=== PATIENT | female | born 1955 | race Hispanic/Latino ===

== ENCOUNTER 2021-09-10 01:24 | Emergency (ER) | payer SELFPAY ==
[2021-09-10] MEDS ORDERED: SODIUM CHLORIDE 0.9% 1000 ML 1,000 ML IV ONE (06:27)
[2021-09-10 06:58] VITALS: BP 133/69
[2021-09-10 07:32] LABS: Amphetamine Screen,Urine Negative; Cannabinoid Screen,Urine Negative; Cocaine Screen,Urine Negative; Methadone Screen,Urine Negative; Opiate Screen,Urine Negative
[2021-09-10 07:33] LABS: Basophils % (Auto) 0.3 % (0.0-1.8); Eosinophils # (Auto) 0.2 K/mm3 (0.0-0.4); Eosinophils % (Auto) 2.8 % (0.0-4.3); Hematocrit 36.6 % (30.3-42.9); Hemoglobin 12.2 gm/dl (10.1-14.3); Lymphocytes # (Auto) 1.5 K/mm3 (1.2-5.4); Lymphocytes % (Auto) 19.9 % (13.4-35.0); Mean Corpuscular HGB Conc 33 % (30-34); Mean Corpuscular Volume 88 fl (79-97); Monocytes # (Auto) 0.4 K/mm3 (0.0-0.8); Monocytes % (Auto) 5.4 % (0.0-7.3); Platelet Count 259 K/mm3 (140-440); Red Blood Count 4.17 M/mm3 (3.65-5.03)
[2021-09-10 07:57] LABS: Alanine Aminotransferase 24 units/L (7-56); Albumin 3.6 g/dL (3.9-5); Blood Urea Nitrogen 14 mg/dL (7-17); Calcium 9.1 mg/dL (8.4-10.2); Hemolysis Index 15
[2021-09-10 08:00] LABS: Bacteria,Urine 1+ /HPF (Negative); Mucus,Urine FEW /HPF
[2021-09-10 08:09] LABS: BUN/Creatinine Ratio 35
[2021-09-10 08:14] LABS: Benzodiazepines Screen,Urine Positive
--- NOTE | 2021-09-10 08:21 | Emergency Department Report ---
ED General Adult HPI - General Chief complaint: Pain General Stated complaint: MED REFILL PUI?: No Time Seen by Provider: 09/10/21 06:26 Source: patient Mode of arrival: Stretcher Limitations: No Limitations - History of Present Illness Initial comments: At airport on her way to [place]. Ran out of Fentanyl Patch. Took Xanax [employer] and sleeps at tere frequent intervals. Responds to verbal and tactile stimuli. -: hour(s) Severity scale (0 -10): 6 Worsens with: none Associated Symptoms: denies: denies other symptoms, confusion, chest pain, cough - Related Data Allergies Allergy/AdvReac Type Severity Reaction Status Date / Time Sulfa (Sulfonamide Allergy Itching Verified 09/10/21 02:51 Antibiotics) ED Review of Systems ROS: Stated complaint: MED REFILL Other details as noted in HPI Constitutional: denies: chills, fever Eyes: denies: eye pain, eye discharge, vision change ENT: denies: ear pain, throat pain Respiratory: denies: cough, shortness of breath, wheezing Cardiovascular: denies: chest pain, palpitations Endocrine: no symptoms reported Gastrointestinal: denies: abdominal pain, nausea, diarrhea Genitourinary: denies: urgency, dysuria, discharge Musculoskeletal: denies: back pain, joint swelling, arthralgia Skin: denies: rash, lesions Neurological: denies: headache, weakness, paresthesias Psychiatric: denies: anxiety, depression Hematological/Lymphatic: denies: easy bleeding, easy bruising ED Past Medical Hx - Past Medical History Previous Medical History?: Yes Hx of Cancer: Yes (Stage 4 breast Cancer) Hx Psychiatric Treatment: Yes (Anxiety, Panic attack) - Surgical History Past Surgical History?: No - Social History Smoking Status: Never Smoker Substance Use Type: Other ED Physical Exam - General Limitations: No Limitations General appearance: alert, other (drowsy sleepy ) - Head Head exam: Present: atraumatic, normocephalic - Eye Eye exam: Present: normal appearance - ENT ENT exam: Present: mucous membranes moist - Neck Neck exam: Present: normal inspection - Respiratory Respiratory exam: Present: normal lung sounds bilaterally. Absent: respiratory distress - Cardiovascular Cardiovascular Exam: Present: regular rate, normal rhythm. Absent: systolic murmur, diastolic murmur, rubs, gallop - GI/Abdominal GI/Abdominal exam: Present: soft, normal bowel sounds - Extremities Exam Extremities exam: Present: normal inspection - Back Exam Back exam: Present: normal inspection - Neurological Exam Neurological exam: Present: alert, oriented X3 - Psychiatric Psychiatric exam: Present: normal affect, normal mood - Skin Skin exam: Present: warm, dry, intact, normal color. Absent: rash ED Course Vital Signs 09/10/21 09/10/21 09/10/21 01:24 02:54 04:03 Temperature 98 F Pulse Rate 77 72 74 Respiratory 20 12 17 Rate Blood Pressure 118/80 Blood Pressure 90/35 105/44 [Left] O2 Sat by Pulse 98 100 97 Oximetry 09/10/21 06:57 Temperature Pulse Rate 76 Respiratory 16 Rate Blood Pressure Blood Pressure 133/69 [Left] O2 Sat by Pulse 99 Oximetry ED Medical Decision Making - Lab Data Result diagrams: 09/10/21 06:49 09/10/21 06:49 - Medical Decision Making fluids given more awake and alert , Critical care attestation.: If time is entered above; I have spent that time in minutes in the direct care of this critically ill patient, excluding procedure time. ED Disposition Clinical Impression: Benzodiazepine abuse Disposition: 01 HOME / SELF CARE / HOMELESS Is pt being admited?: No Does the pt Need Aspirin: No Condition: Stable
[2021-09-10 08:29] LABS: Bilirubin,Urine Negative (Negative); Blood,Urine 1+ (Negative); Color,Urine Yellow (Yellow)
--- NOTE | 2021-09-11 10:02 | Electrocardiograph Report ---
[facility] Test Date: 2021-09-10 Test Time: 08:30:45 Pat Name: OBDULIA JAMES Department: Room: Gender: F Department Clerk: GLENNY : 1955 Requested By: AVELINA COATES Order Number: [id number] Reading MD: Abdulkadir Augustin Measurements Intervals [place] Rate: 73 P: 50 IL: 136 QRS: 17 QRSD: 82 T: 55 QT: 400 QTc: 442 Interpretive Statements Sinus rhythm No previous ECG available for comparison Electronically Signed On 09-11-2021 10:01:34 EDT by Abdulkadir Augustin
== END 2021-09-10 10:04 | disposition home or self-care (01) ==
LOC: ED 01:24
DX: F13.10 Sedative, hypnotic or anxiolytic abuse, uncomplicated (principal); Z85.3 Personal history of malignant neoplasm of breast; F41.9 Anxiety disorder, unspecified; F41.0 Panic disorder [episodic paroxysmal anxiety]; Z88.2 Allergy status to sulfonamides
CPT/HCPCS: 36415; 80053; 80307; 81001; 84484; 85025; 93005; 96360; 99284; J7030; 80320; G0480